=== PATIENT | male | born 1975 | race Asian ===

== ENCOUNTER 2019-12-10 16:47 | Emergency (ER) | payer OTHER ==
--- NOTE | 2019-12-10 17:46 | UC ---
Laceration HPI - HPI Summary HPI Summary: 44 y/o male presents to the urgent care accompany by who translates. states her Lacerated L thumb while cutting chicken today at 1600pm. He irrigated wound and bleeding stopped w/ pressure. He is unsure of last tetanus vaccine. He can move his left thumb w/o any difficulty, Pain is 2/10 at touch and it involves tip of his nail. Pt denies numbness or tingling sensation over his left hand, fever, SOB, chest pain, abdominal pain, N/V/D. - History Of Current Complaint Stated Complaint: FINGER LACERATION Time Seen by Provider: 12/10/19 17:45 Laceration Location: Finger - left thumb laceration Mechanism Of Injury: Sharp Trauma Onset/Duration: Sudden Onset, Lasting Hours - 2 hrs Severity: Mild Pain Intensity: 2 Pain Scale Used: 0-10 Numeric Aggravating Factors: Other: - touch Related History: Dominant Hand Right - Allergies/Home Medications Allergies/Adverse Reactions: Allergies Allergy/AdvReac Type Severity Reaction Status Date / Time No Known Allergies Allergy Verified 12/10/19 18:04 Home Medications: Home Medications Diabetes Medication 12/10/19 [History] PMH/Surg Hx/FS Hx/Imm Hx Previously Healthy: Yes Endocrine History: Diabetes - Family History Known Family History: Positive: Diabetes - Social History Occupation: Employed Full-time Lives: With Family - Immunization History Hx Tetanus, Diphtheria Vaccination: No - unsure when was the last tetanus vaccine Review of Systems All Other Systems Reviewed And Are Negative: Yes Constitutional: Positive: Negative Skin: Positive: Other - laceration of left thumb w/ a knife Eyes: Positive: Negative ENT: Positive: Negative Respiratory: Positive: Negative Cardiovascular: Positive: Negative Gastrointestinal: Positive: Negative Motor: Positive: Negative Neurovascular: Positive: Negative Musculoskeletal: Positive: Other: - left thumb pain s/p laceration Neurological: Positive: Negative Psychological: Positive: Negative Is Patient Immunocompromised?: No Physical Exam - Summary Physical Exam Summary: Vital Signs Reviewed: Yes General: well developed, well nourished male sitting in the examining table w/o any apparent distress Eye Exam: Normal Eyes: Positive: Conjunctiva Clear - PERRLA, EOMI, fundi grossly normal ENT: Positive: Normal ENT inspection, Hearing grossly normal, Pharynx normal, TMs normal Neck: Positive: Supple, Nontender, No Lymphadenopathy Respiratory: Positive: Chest non-tender, Lungs clear, Normal breath sounds, No respiratory distress Cardiovascular: Positive: RRR, No Murmur, Pulses Normal, Brisk Capillary Refill Abdomen Description: Positive: Nontender, No Organomegaly, Soft. Negative: CVA Tenderness (R), CVA Tenderness (L) Bowel Sounds: Positive: Present Musculoskeletal: Positive: Strength Intact, ROM Intact, No Edema Neurological: Positive: Alert, Muscle Tone Normal Psychological Exam: Normal Skin: Positive:medial aspect of left distal thumb with a linear superficial laceration involving the tip of the nail thumb about 2.5cm in size, non bleeding, no foreign body observed. mild tenderness to palpation, no ecchymosis around left thumb. FROM of Left thumb and hand, sensation intact, capillary refill brisk, and pulses WNL. Triage Information Reviewed: Yes Laceration Repair - Laceration Repair 1 Description: Linear - linear laceration of the tip of the left thumb Laceration Size After Repair: Length (cm) - 2.5cm Type Injection: Digital Anesthesia Used: 1.0% Lido - 2ml Cleansing Completed Via Routine Prep: Yes Irrigation With Pressure Irrigation Device: Yes Closure Material: SteriStrips - and skin adhesive over the nail, Sutures - 5 Closure Method: Single Layer Suture Of: Skin, SQ Suture Type: Nylon - 5.0 Laceration Course/Dx - Course/Dx Course Of Treatment: 44 y/o male presents to the urgent care accompany by who translates. states her Lacerated L thumb while cutting chicken today at 1600pm. He irrigated wound and bleeding stopped w/ pressure. He is unsure of last tetanus vaccine. He can move his left thumb w/o any difficulty, Pain is 2/10 at touch and it involves tip of his nail. Pt denies numbness or tingling sensation over his left hand, fever, SOB, chest pain, abdominal pain, N/V/D. Hx obtained.medial aspect of left distal thumb with a linear superficial laceration involving the tip of the nail thumb about 2.5cm in size, non bleeding on examination. Left thumb X-ray ordered: Impression: no fracture or FB observed. Final radiology reports weill be done tomorrow. Pt will be notified of any abnormality. LACERATION PROCEDURE NOTE: . Copious irrigation was done with saline by the nurse and the wound explored. There was no FB or deep structure injury noted. FROM of left thumb. procedure was explained and consent obtained, Timeout performed. The wound was anesthetized by digital block with 2 mL of 1 % lido with good anesthesia. Sterile drape and prep were done. There were 5 sutures with 5.0 nylon type of suture and nail glue w/ skin adhesive. The length of the wound after closure was 2.5cm. No debridement done. Pt tolerated the procedure well without adverse effects. Neurovascular intact and FROM of left thumb. Tdap ordered and applied by nurse. Pt Rx Keflex PO and Bacitracin oint as directed below. Pt advised to f/u suture removal in 10-12 days and if any signs of infection develop to immediately return to the urgent care of PCP for further management and treatment.Pt's BP is elevated today advised to decrease salt in diet, monitor BP and f/u with PCP for further management. Pt understood and agreed and left the clinic ambulating A&Ox3. - Differential Dx - Laceration/Wound Differental Diagnoses: Avulsion, Fracture, Laceration, Puncture Wound, Tendon Laceration - Diagnosis Provider Diagnosis: Laceration of left thumb with damage to nail, Elevated BP without diagnosis of hypertension Discharge ED - Sign-Out/Discharge Documenting (check all that apply): Patient Departure - D/C home All imaging exams completed and their final reports reviewed: No - Discharge Plan Condition: Stable Disposition: HOME Prescriptions: Bacitracin OINTMENT* 1 applic TOPICAL BID #1 tube Cephalexin CAP* [Keflex CAP*] 500 mg PO QID #28 cap Patient Education Materials: Care For Your Stitches (ED), Laceration (ED) Referrals: Jalen Heredia MD [Primary Care Provider] - 1 Week Additional Instructions: 1-Please take full course of antibiotic to avoid resistance. TAke yogurts w/ probiotics or culturelle to protect your GI system 2- Keep wound clean and dry and avoid excessive movement w/ your Thumb. 3- F/u suture removal in 10-12 days w/ your PCP or here at the urgent care. 4-Take Ibuprofen or Tylenol PO q6-8hrs prn for pain or swelling. 5- If you develop fever or redness around your thumb despite the antibiotic please go to the ER immediately or return to the Urgent care. 6-Your BP is elevated today advised to decrease salt in diet, monitor BP and f/ u with PCP for further management. - Billing Disposition and Condition Condition: STABLE Disposition: Home
[2019-12-10 18:06] VITALS: BP 149/82
[2019-12-10] MEDS ORDERED: Tetan/Diph/Pertus SYR(Tdap)* 0.5 ML SYR(BOOSTRIX) use SYR contains LATEX IM ONE (18:14)
[2019-12-10] MEDS ORDERED: Lidocaine 1% MPF ** 5 ML VIAL INJ ONE (18:15)
--- NOTE | 2019-12-11 11:11 | UC ---
- Progress Note Progress Note: Radiology report reviewed. No evidence for fracture or radiopaque foreign body. No change in management. Course/Dx - Diagnoses Provider Diagnoses: Laceration of left thumb with damage to nail, Elevated BP without diagnosis of hypertension Discharge ED - Sign-Out/Discharge Documenting (check all that apply): Post-Discharge Follow Up All imaging exams completed and their final reports reviewed: Yes - Discharge Plan Condition: Stable Disposition: HOME Prescriptions: Bacitracin OINTMENT* 1 applic TOPICAL BID #1 tube Cephalexin CAP* [Keflex CAP*] 500 mg PO QID #28 cap Patient Education Materials: Care For Your Stitches (ED), Laceration (ED) Referrals: Jalen Heredia MD [Primary Care Provider] - 1 Week Additional Instructions: 1-Please take full course of antibiotic to avoid resistance. TAke yogurts w/ probiotics or culturelle to protect your GI system 2- Keep wound clean and dry and avoid excessive movement w/ your Thumb. 3- F/u suture removal in 10-12 days w/ your PCP or here at the urgent care. 4-Take Ibuprofen or Tylenol PO q6-8hrs prn for pain or swelling. 5- If you develop fever or redness around your thumb despite the antibiotic please go to the ER immediately or return to the Urgent care. 6-Your BP is elevated today advised to decrease salt in diet, monitor BP and f/ u with PCP for further management. - Billing Disposition and Condition Condition: STABLE Disposition: Home
== END 2019-12-10 19:45 | disposition home or self-care (01) ==
LOC: UCEAST 16:47
DX: R03.0 Elevated blood-pressure reading, without diagnosis of hypertension (principal); E11.9 Type 2 diabetes mellitus without complications; S61.012A Laceration without foreign body of left thumb without damage to nail, initial encounter; Z79.84 Long term (current) use of oral hypoglycemic drugs; W26.9XXA Contact with unspecified sharp object(s), initial encounter; Y92.9 Unspecified place or not applicable
CPT/HCPCS: 12001; 90715; 99212; G0463

== ENCOUNTER 2019-12-25 13:02 | Emergency (ER) | payer OTHER ==
[2019-12-25 13:18] VITALS: BP 132/85
--- NOTE | 2019-12-25 13:21 | UC ---
HPI Wound/Suture Re-check - HPI Summary HPI Summary: PATIENT HAD 5 SUTURES PLACED TO HIS LEFT THUMB ON 12/10/2019. HE IS HERE FOR SUTURE REMOVAL. STATES WOUND HAS BEEN HEALING WELL. NO PAIN OR DRAINAGE. - History Of Current Complaint Chief Complaint: UCLaceration Stated Complaint: SUTURE REMOVAL Time Seen by Provider: 12/25/19 13:20 Hx Obtained From: Patient, Family/Sales And Service Representative - Onset/Duration: Lasting Days Severity: Mild Pain Intensity: 0 Pain Scale Used: 0-10 Numeric - Allergies/Home Medications Allergies/Adverse Reactions: Allergies Allergy/AdvReac Type Severity Reaction Status Date / Time No Known Allergies Allergy Verified 12/10/19 18:04 PMH/Surg Hx/FS Hx/Imm Hx Endocrine History: Diabetes GI/ History: Kidney Stones - Surgical History Surgical History: Yes Surgery Procedure, Year, and Place: kidney stone. sinus surgery - Family History Known Family History: Positive: Diabetes - Social History Alcohol Use: None Substance Use Type: None Smoking Status (MU): Never Smoked Tobacco - Immunization History Most Recent Tetanus Shot: unknwon Hx Tetanus, Diphtheria Vaccination: No - unsure when was the last tetanus vaccine Review of Systems All Other Systems Reviewed And Are Negative: Yes Constitutional: Positive: Negative Skin: Positive: Other - HEALING LACERATION LEFT THUMB Respiratory: Positive: Negative Cardiovascular: Positive: Negative Gastrointestinal: Positive: Negative Physical Exam Triage Information Reviewed: Yes Appearance: Well-Appearing, No Pain Distress, Well-Nourished Vital Signs: Initial Vital Signs Temp 98.2 F 12/25/19 13:16 Pulse 82 12/25/19 13:16 Resp 18 12/25/19 13:16 BP 132/85 12/25/19 13:16 Pulse Ox 96 12/25/19 13:16 Vital Signs Reviewed: Yes Eyes: Positive: Conjunctiva Clear ENT: Positive: Hearing grossly normal Neck: Positive: Supple Respiratory: Positive: No respiratory distress, No accessory muscle use Cardiovascular: Positive: Pulses Normal Abdomen Description: Positive: Soft Musculoskeletal: Positive: No Edema Neurological: Positive: Alert Psychological: Positive: Age Appropriate Behavior Skin: Positive: Other - HEALING LACERATION LEFT THUMB. SUTURES IN PLACE. Course/Dx - Course Course Of Treatment: 5 SUTURES REMOVED WITHOUT DIFFICULTY. - Diagnosis Provider Diagnosis: Visit for suture removal Discharge ED - Sign-Out/Discharge Documenting (check all that apply): Patient Departure All imaging exams completed and their final reports reviewed: No Studies - Discharge Plan Condition: Stable Disposition: HOME Patient Education Materials: Stitches Removal (ED) Referrals: [facility] [Outside] - If Needed Additional Instructions: YOUR 5 SUTURES WERE REMOVED TODAY WITHOUT DIFFICULTY. WOUND REINFORCED WITH STERI-STRIPS. THESE WILL FALL OFF ON THEIR OWN WITH TIME. DO NOT APPLY ANY OINTMENT ON TOP OF THEM. DO NOT SUBMERGE IN WATER FOR PROLONGED PERIOD OF TIME. SEEK FOLLOW-UP IF YOU DEVELOP SPREADING REDNESS OF THE SKIN, PURULENT DRAINAGE, INCREASED PAIN, FEVER OR ANY OTHER CONCERNING SYMPTOMS. - Billing Disposition and Condition Condition: STABLE Disposition: Home
== END 2019-12-25 13:38 | disposition home or self-care (01) ==
LOC: UCEAST 13:02
DX: S61.012D Laceration without foreign body of left thumb without damage to nail, subsequent encounter (principal); E11.9 Type 2 diabetes mellitus without complications; X58.XXXD Exposure to other specified factors, subsequent encounter
CPT/HCPCS: 99211; G0463